=== PATIENT | female | born 1950 ===

== ENCOUNTER → 2018-03-06 | Outpatient (CLI) | payer OTHER, MEDICARE ==
[~2018-03-06] MED LIST: ESTROGEN PATCH; LOR5/325 PO; TOBOO OD
--- NOTE | 2018-03-06 17:28 | RADIOLOGY IMAGING REPORT ---
FACILITY: [facility] PATIENT NAME: SAMANTHA CRAIN : [id number] MR: [id number] V: [id number] EXAM DATE: [id number] ORDERING PHYSICIAN: MARY SONI TECHNOLOGIST: Gabrielle Jenkins PROCEDURE:BILATERAL DIGITAL SCREENING MAMMOGRAM WITH CAD ASSISTED INTERPRETATION & 3D TOMOSYNTHESIS COMPARISON:Prior mammograms 01/05/17, 12/24/15, 01/20/14, 03/21/13. INDICATIONS:SCREENING FINDINGS: Moderately dense fibroglandular tissue is seen throughout the breasts. There is a rounded area of increased density seen in Left 1/3 of the Right breast inferior on the Right MLO view best seen on Tomographic slice 22. Right breast Ultrasound is recommended for further evaluation. The remainder of the parenchymal pattern has remained stable throughout the breasts. DIAGNOSTIC CATEGORY 0--INCOMPLETE: NEED ADDITIONAL IMAGING EVALUATION. RECOMMENDATIONS: ULTRASOUND: RIGHT BREAST. IMPRESSION: BIRADS 0: Incomplete. Right breast Ultrasound recommended as described above. Dictated by: Karmen Guerrero M.D. on 03/06/2018 at 14:40 Transcribed by: HAYLIE on 03/06/2018 at 14:51 Approved by: Karmen Guerrero M.D. on 03/06/2018 at 17:27 [facility]
== END ==
LOC: MAMO 01:14
PROVIDERS: ATTEND Physician Assistant
DX: Z12.31 Encounter for screening mammogram for malignant neoplasm of breast (principal); R92.8 Other abnormal and inconclusive findings on diagnostic imaging of breast
CPT/HCPCS: 77063; 77067

== ENCOUNTER → 2018-03-12 | Outpatient (CLI) | payer MEDICARE, OTHER ==
--- NOTE | 2018-03-12 14:35 | RADIOLOGY IMAGING REPORT ---
FACILITY: [facility] [place] PATIENT NAME: Rose Mcmahan : 1950 MR: [id number] V: [id number] EXAM DATE: ORDERING PHYSICIAN: MARY SONI TECHNOLOGIST: Location: [facility] Patient: Rose Mcmahan : 1950 Visit/Account:[id number] Date of Sevice: 03/12/2018 DEXA Scan Clinical history: Postmenopausal. Comparison: None available. LUMBAR SPINE: The bone mineral density (BMD) measured from L1-L4 correlates with a Z-score 1.2 and a T-score of -0. 5 which is Normal as defined by the World Health Organization. The corresponding risk of fracture in the lumbar spine is 1-2 times increased compared with a young adult reference population. HIP: Bone mineral density (BMD) measured in the Left total hip region correlates with a Z-score 0.5 and a T-score of -0.8 which is Normal as defined by the World Health Organization. The corresponding risk of fracture in the hip is 1-2 times increased compared with a young adult reference population. T s core left femoral neck -1.0 Bone mineral density (BMD) measured in the Femoral Neck region measures 0.905 g/cm2. Impression: 1. Lumbar spine: Normal. 2. Left Hip: Normal. 3. Femoral Neck: Bone Mineral Density is 0.905 g/cm2 The next DEXA scan of this patient should include the following sites: L1-L4 and the left hip. FRAX? WHO Fracture Risk Assessment Tool link: <http://www.shef.ac.uk/FRAX/tool.jsp?locationValue=9> PLEASE NOTE: 1) The World Health Organization defines low BMD as follows: T-score Normal > -1 Osteopenia < -1 and > -2.5 Osteoporosis < -2.5 without fractures Established osteoporosis < -2.5 with fractures 2) In general, you may wish to consider: Diagnosis Treatment Follow-up DEXA Normal BMD Prevention 2-3 years Osteopenia Prevention/therapy 1-2 years Osteoporosis Therapy Yearly 3) Fracture risk estimated from the T-score is more accurate for vertebral fractures (often spontane ous) than for hip fractures. Report Dictated By: Karmen Guerrero MD at 03/12/2018 2:31 PM Report E-Signed By: Karmen Guerrero MD at 03/12/2018 2:32 PM WSN:[id number]
--- NOTE | 2018-03-13 09:04 | RADIOLOGY IMAGING REPORT ---
FACILITY: [facility] PATIENT NAME: SAMANTHA CRAIN : [id number] MR: [id number] V: [id number] EXAM DATE: [id number] ORDERING PHYSICIAN: MARY SONI TECHNOLOGIST: Christine Matias RDMS(ABD,OBGYN,BR),RVT PROCEDURE:US RIGHT BREAST COMPLETE COMPARISON:Prior mammogram 03/06/18 INDICATIONS:FURTHER EVAL FINDINGS: In the 6 o'clock position of the Right breast approximately 1cm from the nipple there is a 1cm cyst which likely accounts for the recent mammographic findings. DIAGNOSTIC CATEGORY 2--BENIGN FINDING. RECOMMENDATIONS: ROUTINE MAMMOGRAM AND CLINICAL EVALUATION. IMPRESSION: BIRADS 2: Benign finding. There is a 1cm cyst in the 6 o'clock position of the Right breast 1cm from the nipple likely accounting for the recent mammographic findings. Dictated by: Karmen Guerrero M.D. on 03/12/2018 at 16:44 Transcribed by: HAYLIE on 03/13/2018 at 8:31 Approved by: Karmen Guerrero M.D. on 03/13/2018 at 9:03 [facility]
== END ==
LOC: US 04:27
PROVIDERS: ATTEND Physician Assistant
DX: N60.01 Solitary cyst of right breast (principal); Z78.0 Asymptomatic menopausal state
CPT/HCPCS: 77080